=== PATIENT | male | born 1945 | race African-American/Black ===

== ENCOUNTER 2017-09-27 13:36 | Emergency (ER) | payer MEDICARE ==
[~2017-09-27] VITALS: Ht 180.3 cm; Wt 90.7 kg
[2017-09-27] MEDS ORDERED: LISINOPRIL5 MG ORAL (13:39)
[2017-09-27] MEDS ORDERED: SIMVASTATIN5 MG ORAL (13:39)
[2017-09-27] MEDS ORDERED: LORAZEPAM1 MG ORAL (13:39)
[2017-09-27] MEDS ORDERED: ZYLOPRIM100 MG ORAL (13:39)
[2017-09-27 13:43] VITALS: BP 152/70
[2017-09-27] MEDS ORDERED: LORazepam Inj 2mg/ml 1ml IV ONE (14:00)
--- NOTE | 2017-09-27 14:36 | Diagnostic Imaging Report ---
Indication: Seizure Technique: Contiguous 5 mm thick transaxial imaging of the head obtained in a Siemens Sensation [address] scanner. Soft tissue and bone windows generated. Automatic Exposure Control was utilized. Total Dose length Product (DLP): 1407.[address] Dose Index Volume (CTDIvol): 70.38 mGy Comparison: none Findings: There is mild prominence of the ventricles, basal cisterns, and cerebral sulci consistent with atrophy. Mild, nonspecific, white matter hypoattenuation is noted throughout the brain consistent with chronic small vessel disease. Small cystic foci noted within the caudate bilaterally and left putamen likely small lacunar infarcts and likely old. Some vascular calcifications noted within the vertebral arteries and cavernous carotid arteries. There is no midline shift, edema, acute hemorrhage, mass effect, or abnormal extra-axial fluid collections. Bones and extra osseous soft tissues are unremarkable. Impression: No acute intracranial bleed, mass effect or edema. Suggestion of lacunar infarcts within the basal ganglia. Atherosclerotic vascular disease Mild atrophy of the brain. Nonspecific white matter hypoattenuation probably due to chronic small vessel disease. The CT scanner at [facility] is accredited by the [employer] and the scans are performed using dose optimization techniques as appropriate to a performed exam including Automatic Exposure control.
[2017-09-27 14:57] LABS: BASOPHILS % (AUTO) 0.7 % (0.0-2.0); EOSINOPHILS % (AUTO) 0.6 % (0.0-3.0); HEMATOCRIT 54.7 % (42.0-52.0); LYMPHOCYTES % (AUTO) 25.5 % (20.0-45.0); MEAN CORPUSCULAR VOLUME 96 FL (80-99); MONOCYTES % (AUTO) 8.1 % (1.0-10.0); PLATELET COUNT 263 K/UL (150-450); RED BLOOD COUNT 5.72 M/UL (4.70-6.10); RED CELL DISTRIBUTION WIDTH 12.5 % (11.6-14.8); WHITE BLOOD COUNT 16.4 K/UL (4.8-10.8)
[2017-09-27 14:59] LABS: HEMOGLOBIN 18.3 G/DL (14.2-18.0)
[2017-09-27 15:14] LABS: ANION GAP 20 mmol/L (5-15); BLOOD UREA NITROGEN 32 mg/dL (7-18); CALCIUM 9.4 MG/DL (8.5-10.1); CARBON DIOXIDE 22 MMOL/L (21-32); CHLORIDE 100 MMOL/L (98-107); CREATININE 2.2 MG/DL (0.55-1.30); POTASSIUM 3.9 MMOL/L (3.5-5.1); SODIUM 141 MMOL/L (136-145)
[2017-09-27 15:27] LABS: ALANINE AMINOTRANSFERASE 14 U/L (12-78); ALBUMIN 3.9 G/DL (3.4-5.0); ALKALINE PHOSPHATASE 61 U/L (46-116); ASPARTATE AMINO TRANSFERASE 28 U/L (15-37); BILIRUBIN,TOTAL 0.9 MG/DL (0.2-1.0); CKMB 2.5 NG/ML (0.0-3.6); CREATINE KINASE 206 U/L (26-308)
[2017-09-27 16:01] VITALS: BP 168/78
--- NOTE | 2017-09-27 16:04 | Emergency Room Report ---
History of Present Illness General Chief Complaint: Seizure Source: EMS Present Illness HPI 72-year-old male presents ED status post seizure. Witnessed at home. After several seconds and resolved. No head injury. Upon arrival patient is post ictal and lethargic. Patient has an additional seizure in ambulance pain. EMS states patient has no history of seizures. Patient is unable to provide any additional history at this time. Son is Tyler Linares. He is an anesthesiologist here at [facility] [place] States that patient has history of CVA and hypertension. Also was told by mother that patient was gone for 2 days for alcohol and cocaine use. Patient returned last night. Daughter aggravating relieving factors. Denies any other associated Allergies: Coded Allergies: No Known Allergies (Unverified , 09/27/17) Patient History Past Medical History: HTN, CVA/TIA Past Surgical History: none Pertinent Family History: none Social History: Reports: alcohol use, drug use, Denies: smoking Immunizations: UTD Reviewed Nursing Documentation: PMH: Agreed, PSxH: Agreed Nursing Documentation-PMH Hx Hypertension: Yes Hx Seizures: Yes Review of Systems All Other Systems: limited Physical Exam Vital Signs Date Time Temp Pulse Resp B/P (MAP) Pulse Ox O2 Delivery O2 Flow Rate FiO2 09/27/17 13:33 Room Air 09/27/17 13:43 64 21 152/70 99 Sp02 EP Interpretation: reviewed, normal General Appearance: no apparent distress, GCS 15, non-toxic, lethargic Head: normocephalic Eyes: bilateral eye normal inspection, bilateral eye PERRL ENT: normal ENT inspection Neck: normal inspection Respiratory: chest non-tender, lungs clear, normal breath sounds, speaking full sentences Cardiovascular #1: regular rate, rhythm, no edema Gastrointestinal: normal bowel sounds, non tender, soft, non-distended, no guarding, no rebound Rectal: deferred Genitourinary: no CVA tenderness Musculoskeletal: normal inspection Neurologic: other - lethargic Psychiatric: other - lethargic Skin: normal inspection Lymphatic: normal inspection Medical Decision Making Diagnostic Impression: Primary Impression: Alcohol withdrawal seizure Qualified Codes: F10.239 - Alcohol dependence with withdrawal, unspecified; R56.9 - Unspecified convulsions Additional Impressions: Cocaine abuse ARF (acute renal failure) Qualified Codes: N17.9 - Acute kidney failure, unspecified Altered level of consciousness ER Course Hospital Course 72-year-old male presents ED status post seizure. No history of seizure. Recent two day binge of alcohol and cocaine use Differential diagnoses include: Alcohol intoxication, drug abuse, opioid withdrawal, alcohol withdrawal, dehydration, drug seeking behavior Clinical course Patient placed on stretcher. On quality assurance monitor body. After initial history and physical I ordered labs, IV fluids, Ativan, CT Head Labs reviewed-BUN/Cr elevated, hemoglobin/hematocrit stable, no leukocytosis, Utox + cocaine CT head - lacunar infarcts, no acute process EKG - NSR, no acute ischemic changes interpreted by me Son Tyler Linares (anesthesia at [place]) is aware of admission. patient will be admitted to Dr Violette wilson. I feel this is a highly complex case requiring extensive working including EKG/Rhythm strip, Xray/CT/US, Blood/urine lab work, repeat exams while in ED, and administration of strong opiates/narcotics for pain control, admission to hospital or close patient follow up. Diagnosis - alcohol withdrawal seizure, ARF, cocaine abuse, ALOC admitted to telemetry in serious condition Labs Test 09/27/17 14:40 09/27/17 15:00 White Blood Count 16.4 K/UL (4.8-10.8) Red Blood Count 5.72 M/UL (4.70-6.10) Hemoglobin 18.3 G/DL (14.2-18.0) Hematocrit 54.7 % (42.0-52.0) Mean Corpuscular Volume 96 FL (80-99) Mean Corpuscular Hemoglobin 32.1 PG (27.0-31.0) Mean Corpuscular Hemoglobin Concent 33.5 G/DL (32.0-36.0) Red Cell Distribution Width 12.5 % (11.6-14.8) Platelet Count 263 K/UL (150-450) Mean Platelet Volume 8.4 FL (6.5-10.1) Neutrophils (%) (Auto) 65.0 % (45.0-75.0) Lymphocytes (%) (Auto) 25.5 % (20.0-45.0) Monocytes (%) (Auto) 8.1 % (1.0-10.0) Eosinophils (%) (Auto) 0.6 % (0.0-3.0) Basophils (%) (Auto) 0.7 % (0.0-2.0) Sodium Level 141 MMOL/L (136-145) Potassium Level 3.9 MMOL/L (3.5-5.1) Chloride Level 100 MMOL/L (98-107) Carbon Dioxide Level 22 MMOL/L (21-32) Anion Gap 20 mmol/L (5-15) Blood Urea Nitrogen 32 mg/dL (7-18) Creatinine 2.2 MG/DL (0.55-1.30) Estimat Glomerular Filtration Rate mL/min (>60) Glucose Level 171 MG/DL (74-106) Calcium Level 9.4 MG/DL (8.5-10.1) Total Bilirubin 0.9 MG/DL (0.2-1.0) Aspartate Amino Transf (AST/SGOT) 28 U/L (15-37) Alanine Aminotransferase (ALT/SGPT) 14 U/L (12-78) Alkaline Phosphatase 61 U/L (46-116) Total Creatine Kinase 206 U/L (26-308) Creatine Kinase MB 2.5 NG/ML (0.0-3.6) Creatine Kinase MB Relative Index 1.2 Troponin I 0.026 ng/mL (0.000-0.056) Total Protein 7.9 G/DL (6.4-8.2) Albumin 3.9 G/DL (3.4-5.0) Globulin 4.0 g/dL Albumin/Globulin Ratio 1.0 (1.0-2.7) Salicylates Level 2.7 ug/mL (2.8-20) Phenytoin (Dilantin) Level < 0.4 ug/mL (10-20) Valproic Acid (Depakene) Level 3 MCG/ML (50-100) Phenobarbital Level 1.5 ug/mL (15-40) Urine Opiates Screen Negative (NEGATIVE) Urine Barbiturates Screen Negative (NEGATIVE) Phencyclidine (PCP) Screen Negative (NEGATIVE) Urine Amphetamines Screen Negative (NEGATIVE) Urine Benzodiazepines Screen Negative (NEGATIVE) Urine Cocaine Screen Positive (NEGATIVE) Urine Marijuana (THC) Screen Negative (NEGATIVE) EKG Diagnostic Results Rate: normal Rhythm: NSR ST Segments: no acute changes ASA given to the pt in ED: No Rhythm Strip Diag. Results EP Interpretation: yes Rhythm: NSR, no PVC's, no ectopy CT/MRI/US Diagnostic Results CT/MRI/US Diagnostic Results : Imaging Test Ordered: CT Head Impression lacunar infarcts, no acute process Last Vital Signs Date Time Temp Pulse Resp B/P (MAP) Pulse Ox O2 Delivery O2 Flow Rate FiO2 09/27/17 13:43 64 21 Room Air 09/27/17 13:43 152/70 99 Status: improved Disposition: ADMITTED INPATIENT Condition: Serious Referrals: NOT CHOSEN IPA/,REFERRING (PCP) JAMARCUS KEY M.D. Sep 27, 2017 16:04
[2017-09-27 20:36] VITALS: BP 192/69
[2017-09-27] MEDS ORDERED: levETIRAcetam 1,000mg/NS100ml 100 ML IVPB ONE (20:45)
[2017-09-27 21:09] VITALS: BP 140/56
[2017-09-27 23:05] VITALS: BP 159/52
[2017-09-27 23:40] VITALS: BP 159/52
--- NOTE | 2017-09-30 15:06 | Cardiology Report ---
APPROVED REPORT EKG Measurement Heart [id number] Normal sinus rhythm Anterior infarct, age undetermined T wave abnormality, consider lateral ischemia Abnormal ECG
== END 2017-09-28 | disposition short-term general hospital (02) ==
LOC: EDBD 13:36 → EMR 14:30 → EDBEDREQ 15:29 → EMR 09-28
DX: F10.239 Alcohol dependence with withdrawal, unspecified (principal); R56.9 Unspecified convulsions; F14.10 Cocaine abuse, uncomplicated; N17.9 Acute kidney failure, unspecified; I10 Essential (primary) hypertension; R41.82 Altered mental status, unspecified
CPT/HCPCS: 36415; 70450; 80053; 80164; 80184; 80185; 80307; 80329; 82550; 82553; 84484; 85025; 93005; 96361; 96365; 96375; 96376; 99285